=== PATIENT | male | born 1975 | race African-American/Black ===

== ENCOUNTER 2017-01-15 17:17 | Emergency (ER) | payer BC ==
[~2017-01-15] VITALS: Ht 165.1 cm; Wt 68.0 kg
[2017-01-15 17:22] VITALS: BP 107/77
[2017-01-15] MEDS ORDERED: IBUP200T77 PO (18:16)
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
== END 2017-01-15 18:35 | disposition home or self-care (01) ==
LOC: ER 17:17
DX: S06.0X0A Concussion without loss of consciousness, initial encounter (principal); J45.909 Unspecified asthma, uncomplicated; Z88.0 Allergy status to penicillin; W22.8XXA Striking against or struck by other objects, initial encounter; Y93.16 Activity, rowing, canoeing, kayaking, rafting and tubing; Y92.89 Other specified places as the place of occurrence of the external cause; Y99.8 Other external cause status
CPT/HCPCS: 99282

== ENCOUNTER → 2017-08-15 | Outpatient (CLI) | payer BC ==
[2017-08-15] MEDS: GADOBUTROL 7.5 MMOL/7.5 ML VIAL IV ×2 (14:24)
== END | disposition home or self-care (01) ==
LOC: MRI 12:31
DX: D49.7 Neoplasm of unspecified behavior of endocrine glands and other parts of nervous system (principal)
CPT/HCPCS: 70543; 70553; A9585

== ENCOUNTER 2018-05-16 14:34 | Emergency (ER) | payer BC ==
[~2018-05-16] VITALS: Ht 165.1 cm; Wt 77.1 kg
[~2018-05-16 14:34] MED LIST: ATOR40TA59 PO; IBUP200T77 PO
[2018-05-16] MEDS ORDERED: IV NORMAL SALINE 1000ML BAG 1,000 ML IV SCH (15:00)
[2018-05-16 15:01] LABS: BASO % 1 % (0-3); EOS # 0.1 x10^3/uL (0.0-0.7); EOS % 2 % (0-3); HEMATOCRIT 39.8 % (39.0-53.0); HEMOGLOBIN 13.4 g/dL (13.0-17.5); LYMPH # 2.2 x10^3/uL (1.0-4.8); LYMPH % 43 % (24-48); MEAN CORPUSCULAR HEMOGLOBIN 28 pg (25-35); MEAN CORPUSCULAR HGB CONC 34 g/dL (31-37); MEAN CORPUSCULAR VOLUME 82 fL (79-100); MONO # 0.4 x10^3/uL (0.0-1.1); MONO % 9 % (0-9); NEUT # 2.3 x10^3uL (1.8-7.7); NEUT % 45 % (31-73); PLATELET COUNT 222 x10^3/uL (140-400); RED BLOOD COUNT 4.85 x10^6/uL (4.30-5.70); RED CELL DISTRIBUTION WIDTH 14.2 % (11.5-14.5)
--- NOTE | 2018-05-16 15:01 | EKG ---
[facility] [address] [place] [address] Test Date: 2018-05-16 Test Time: 14:44:15 Pat Name: GLYNN FREY Department: Room: Gender: M [employer] T[employer]: : 1975 Requested By: IRA ROGERS Order Number: [id number] Reading MD: Teofilo Kiran Measurements Intervals [place] Rate: 71 P: 0 PA: 122 QRS: 55 QRSD: 76 T: 48 QT: 340 QTc: 374 Interpretive Statements SINUS RHYTHM NO SPECIFIC ECG ABNORMALITIES Electronically Signed On 05-17-2018 14:30:24 RETORT FURNACE OPERATOR by Teofilo Kiran
--- NOTE | 2018-05-16 15:14 | RAD ---
PROCEDURE: PORTABLE CHEST 1V CLINICAL INDICATION: CHEST PAIN, HX OF HYPERLIPIDEMIA, HX OF ASTHMA COMPARISON: 03/09/2018 FINDINGS: No pneumothorax identified. Cardiac and mediastinal contours unremarkable. No pulmonary consolidation or acute airspace disease. No acute osseous abnormalities identified. Calcified granuloma in the left lower lobe. IMPRESSION: No pulmonary consolidation or acute airspace disease. Electronically signed by: Fernando Rockwell DO (05/16/2018 3:10 PM) [id number]
[2018-05-16] MEDS ORDERED: ASPIRIN CHEWABLE 81 MG TABLET. PO ONE (15:15)
[2018-05-16 15:35] LABS: CALCIUM 9.1 mg/dL (8.5-10.1); CREATININE 0.8 mg/dL (0.7-1.3); GFR 128.9; POTASSIUM 4.5 mmol/L (3.5-5.1)
[2018-05-16 15:41] LABS: ALBUMIN 3.4 g/dL (3.4-5.0); ALBUMIN/GLOBULIN RATIO 1.1 (1.0-1.7); MAGNESIUM 1.9 mg/dL (1.8-2.4); TOTAL BILIRUBIN 0.1 mg/dL (0.2-1.0); TOTAL PROTEIN 6.6 g/dL (6.4-8.2)
--- NOTE | 2018-05-16 15:54 | PHYS DOC ---
Past Medical History Past Medical History: Asthma, High Cholesterol, Other Additional Past Medical Histor: strep throat Past Surgical History: Other Additional Past Surgical Histo: R carpal tunnel release, ELBOW, PITUITARY ADENOMA REMOVAL Alcohol Use: None Drug Use: None Adult General Chief Complaint Chief Complaint: CHEST PAIN HPI HPI Patient is a 42-year-old male who presents with complaint of chest pain that started about an hour and a half prior to his arrival to the emergency room. Patient states the pain lasted for maybe about 20 or 30 minutes and at its worse it was a 5 out of 10. He describes the pain as having been tightness in his chest. He states that nothing worsened or improved his symptoms. He states that he had some shortness of breath during the episode of chest pain. Currently he is asymptomatic. He denies any fever, chest pain, cough, shortness breath, abdominal pain, nausea or vomiting. Review of Systems Review of Systems Constitutional: Denies fever or chills [] Respiratory: Complains of shortness of breath [] Cardiovascular: Complains of chest pain, now resolved[] GI: Denies abdominal pain, nausea, vomiting or diarrhea [] Musculoskeletal: Denies back pain or joint pain [] All other systems were reviewed and found to be within normal limits, except as documented in this note. Current Medications Current Medications Current Medications Medications (Trade) Dose Ordered Sig/Codie Start Time Stop Time Status Last Admin Dose Admin Aspirin (Children'S Aspirin) 324 mg 1X ONCE 05/16/18 15:15 05/16/18 15:16 DC Sodium Chloride 1,000 ml @ 1,000 mls/hr Q1H 05/16/18 15:00 05/16/18 15:59 DC 05/16/18 15:11 1,000 MLS/HR Allergies Allergies Allergies Coded Allergies Type Severity Reaction Last Updated Verified Penicillins Allergy Intermediate 02/09/16 No Physical Exam Physical Exam Constitutional: Well developed, well nourished, no acute distress, non-toxic appearance. [] HENT: Normocephalic, atraumatic, bilateral external ears normal, oropharynx moist, no oral exudates, nose normal. [] Eyes: PERRLA, EOMI, conjunctiva normal, no discharge. [] Neck: Normal range of motion, no tenderness, supple, no stridor. [] Cardiovascular:Heart rate regular rhythm, no murmur [] Lungs & Thorax: Bilateral breath sounds clear to auscultation [] Abdomen: Bowel sounds normal, soft, no tenderness. [] Skin: Warm, dry, no erythema, no rash. [] Extremities: No tenderness, no cyanosis, no clubbing, ROM intact, no edema. [] Neurologic: Alert and oriented X 3, normal motor function, normal sensory function, no focal deficits noted. [] Current Patient Data Vital Signs Vital Signs Date Time Temp Pulse Resp B/P (MAP) Pulse Ox O2 Delivery O2 Flow Rate FiO2 05/16/18 14:40 97.4 80 20 112/81 (91) 99 Room Air 97.4 Lab Values Laboratory Tests Test 05/16/18 14:50 05/16/18 15:20 White Blood Count 5.0 x10^3/uL (4.0-11.0) Red Blood Count 4.85 x10^6/uL (4.30-5.70) Hemoglobin 13.4 g/dL (13.0-17.5) Hematocrit 39.8 % (39.0-53.0) Mean Corpuscular Volume 82 fL (79-100) Mean Corpuscular Hemoglobin 28 pg (25-35) Mean Corpuscular Hemoglobin Concent 34 g/dL (31-37) Red Cell Distribution Width 14.2 % (11.5-14.5) Platelet Count 222 x10^3/uL (140-400) Neutrophils (%) (Auto) 45 % (31-73) Lymphocytes (%) (Auto) 43 % (24-48) Monocytes (%) (Auto) 9 % (0-9) Eosinophils (%) (Auto) 2 % (0-3) Basophils (%) (Auto) 1 % (0-3) Neutrophils # (Auto) 2.3 x10^3uL (1.8-7.7) Lymphocytes # (Auto) 2.2 x10^3/uL (1.0-4.8) Monocytes # (Auto) 0.4 x10^3/uL (0.0-1.1) Eosinophils # (Auto) 0.1 x10^3/uL (0.0-0.7) Basophils # (Auto) 0.0 x10^3/uL (0.0-0.2) D-Dimer (Alexa) 0.85 ug/mlFEU (0.00-0.50) H Sodium Level 140 mmol/L (136-145) Potassium Level 4.5 mmol/L (3.5-5.1) Chloride Level 105 mmol/L (98-107) Carbon Dioxide Level 27 mmol/L (21-32) Anion Gap 8 (6-14) Blood Urea Nitrogen 17 mg/dL (8-26) Creatinine 0.8 mg/dL (0.7-1.3) Estimated GFR (Cockcroft-Gault) 128.9 BUN/Creatinine Ratio 21 (6-20) H Glucose Level 84 mg/dL (70-99) Calcium Level 9.1 mg/dL (8.5-10.1) Magnesium Level 1.9 mg/dL (1.8-2.4) Total Bilirubin 0.1 mg/dL (0.2-1.0) L Aspartate Amino Transferase (AST) 31 U/L (15-37) Alanine Aminotransferase (ALT) 38 U/L (16-63) Alkaline Phosphatase 109 U/L (46-116) Troponin I Quantitative < 0.017 ng/mL (0.000-0.055) Total Protein 6.6 g/dL (6.4-8.2) Albumin 3.4 g/dL (3.4-5.0) Albumin/Globulin Ratio 1.1 (1.0-1.7) Laboratory Tests 05/16/18 14:50 Laboratory Tests 05/16/18 15:20 EKG EKG [] Interpretation Time: EKG demonstrates normal sinus rhythm with rate of 71. Radiology/Procedures Radiology/Procedures [] Impressions: Chest x-ray demonstrates no acute process. Course & Med Decision Making Course & Med Decision Making Pertinent Labs and Imaging studies reviewed. (See chart for details) [] Dragon Disclaimer Dragon Disclaimer This electronic medical record was generated, in whole or in part, using a voice recognition dictation system. Departure Departure Impression: Primary Impression: Atypical chest pain Disposition: 01 HOME, SELF-CARE Condition: STABLE Referrals: UNKNOWN PCP NAME (PCP) Patient Instructions: Chest Pain (Nonspecific) IRA ROGERS Jr. DO May 16, 2018 15:54
[2018-05-16 16:08] VITALS: BP 131/94
== END 2018-05-16 16:20 | disposition home or self-care (01) ==
LOC: ER 14:34
DX: R07.89 Other chest pain (principal); R06.02 Shortness of breath; J45.909 Unspecified asthma, uncomplicated; E78.00 Pure hypercholesterolemia, unspecified; Z88.0 Allergy status to penicillin
CPT/HCPCS: 36415; 71045; 80053; 83735; 84484; 85025; 85379; 93005; 99285; J7030